=== PATIENT | male | born 1990 | race African-American/Black ===

== ENCOUNTER 2017-04-13 01:31 | Emergency (ER) | payer OTHER ==
[~2017-04-13 01:31] MED LIST: AMOXICILLIN500 M1 PO; NOHOMEMEDS
[2017-04-13 01:46] LABS: BASOPHIL COUNT 0.1 K/uL (0-0.1); EOSINOPHIL (%) 0.5 % (0-5); EOSINOPHIL COUNT 0.1 K/uL (0-0.3); HEMATOCRIT 40.6 % (38.0-50.0); IMMATURE GRANULOCYTE (%) 0.2 % (0.0-0.7); INSTRUMENT ABS NEUTROPHIL CT 5.3 K/uL; LYMPHOCYTE COUNT 3.7 K/uL (1.0-2.8); MCH 27.1 PG (29.0-34.0); MCHC 32.3 G/DL (30.0-36.0); MCV 83.9 FL (86-99); MEAN PLAT.VOLUME 10.3 uM^3 (9.0-12.4); MONOCYTE (%) 7.4 % (3-12); MONOCYTE COUNT 0.7 K/uL (0-0.8); NEUTROPHIL (%) 54.3 % (45-76); NEUTROPHIL COUNT 5.3 K/uL (1.8-6.4); PLATELET COUNT 272 K/uL (156-360); RBC DIS.WIDTH-CV 13.3 % (11.8-14.6); RBC DIS.WIDTH-SD 40.7 % (39-53); RED BLOOD COUNT 4.84 M/uL (4.00-5.50); WHITE BLOOD COUNT 9.8 K/uL (4.1-10.2)
[2017-04-13 01:58] LABS: AMYLASE 72 IU/L (1-118); CHLORIDE 104 mEq/L (99-109); POTASSIUM 3.6 mEq/L (3.7-5.4); SODIUM 141 mEq/L (136-147)
[2017-04-13 02:00] LABS: GLUCOSE 92 mg/dL (70-99)
[2017-04-13 02:01] LABS: ANION GAP 12 MEQ/L (2-14)
[2017-04-13 02:03] LABS: SERUM ETHYL ALCOHOL < 10 mg/dL
[2017-04-13 02:04] LABS: GFR ESTIMATE (CALCULATED) > 59 mL/min/
[2017-04-13 02:05] LABS: UREA NITROGEN (BUN) 12 mg/dL (9-23)
[2017-04-13 02:07] LABS: LIPASE 26 U/L (1.0-51.0)
[2017-04-13] MEDS ORDERED: FLEXERIL10 MG PO (02:15)
[2017-04-13] MEDS ORDERED: CILOXAN 0.100 DROP/5 RIGHT EYE (03:05)
== END 2017-04-13 03:58 | disposition home or self-care (01) ==
LOC: TRA 01:31
PROVIDERS: Emergency Medicine
DX: M54.2 Cervicalgia (principal); M54.9 Dorsalgia, unspecified; M79.671 Pain in right foot; S05.02XA Injury of conjunctiva and corneal abrasion without foreign body, left eye, initial encounter; V98.8XXA Other specified transport accidents, initial encounter; Y92.410 Unspecified street and highway as the place of occurrence of the external cause
CPT/HCPCS: 72125; 72128; 72131; 73630; 80048; 81003; 82150; 83690; 85025; 86900; 86901; 99281; 99285; G0480